=== PATIENT | male | born 1985 | race Caucasian/White ===

== ENCOUNTER 2017-04-25 15:52 | Emergency (ER) | payer MEDICAID, OTHER ==
[~2017-04-25] VITALS: Ht 172.7 cm; Wt 55.0 kg
[~2017-04-25 15:52] MED LIST: ALBU2.5V NEB; CARV6.2512 PO; DORN1SOL NEB; FAMO-79 PO; LIPA1CAP45 PO; METO5TAB57 PO; NICO-485 TD; NICO-486 TD; OMEP-110 PO; OXYC5TAB3 PO; PRED20TA PO; TOBR300A5 IVPB; TRAM50TA2 PO; [UNRECOGNIZED DRUG - CODE] IVPB; [UNRECOGNIZED DRUG - CODE] PO
[2017-04-25] MEDS ORDERED: SODIUM CHLORIDE 0.9% 1,000 ML IV ONE (16:10)
[2017-04-25] MEDS ORDERED: AMIT50TA PO (16:21)
[2017-04-25] MEDS ORDERED: GABA600T2 PO (16:21)
[2017-04-25] MEDS ORDERED: MEGE40TA PO (16:21)
[2017-04-25] MEDS ORDERED: ALBUTEROL/IPRATROPIUM 2.5MG/0.5MG, 3 ML NPPB SCH (16:30)
[2017-04-25] MEDS ORDERED: SODIUM CHLORIDE FLUSH 10ML SYR IVF ONE (16:30)
[2017-04-25 16:41] LABS: HEMATOCRIT 45.4 % (39.2-51.8); HEMOGLOBIN 14.6 g/dL (13.7-18.0); WHITE BLOOD COUNT 10.7 x10^3/uL (3.4-10)
[2017-04-25] MEDS ORDERED: ALBUTEROL/IPRATROPIUM 2.5MG/0.5MG, 3 ML ONE (16:43)
[2017-04-25 16:54] LABS: ASPARTATE AMINO TRANSFERASE 17 U/L (15-37); BLOOD UREA NITROGEN 11 mg/dL (7-18)
[2017-04-25 18:44] VITALS: BP 120/66
== END 2017-04-25 18:53 | disposition home or self-care (01) ==
LOC: ED 17:28
DX: J20.9 Acute bronchitis, unspecified (principal)
CPT/HCPCS: 36415; 71010; 80053; 83605; 85025; 87040; 93005; 94640; 96360; 96361; 99285; J7030; J7620

== ENCOUNTER 2017-08-20 20:40 | Emergency (ER) | payer OTHER, MEDICAID ==
[~2017-08-20] VITALS: Ht 167.6 cm; Wt 55.7 kg
[~2017-08-20 20:40] MED LIST changes: +AMIT50TA PO; +GABA600T2 PO; +MEGE40TA PO
[2017-08-20] MEDS ORDERED: SODIUM CHLORIDE FLUSH 10ML SYR IVF ONE (21:00)
[2017-08-20] MEDS ORDERED: SODIUM CHLORIDE 0.9% 1,000ML IVBOLUS ONE (21:00)
[2017-08-20 21:11] LABS: BASOPHILS # (AUTO) 0.05 x10^3/uL (0-0.1); BASOPHILS % (AUTO) 0 % (0-1); EOSINOPHILS # (AUTO) 0.08 x10^3/uL (0-0.4); EOSINOPHILS % (AUTO) 1 % (1-7); LYMPHOCYTES # (AUTO) 1.71 x10^3/uL (1-3.4); LYMPHOCYTES % (AUTO) 15 % (22-44); MD NO; MEAN CORPUSCULAR HEMOGLOBIN 28.5 pg (27.5-34.5); MEAN CORPUSCULAR HGB CONC 32.5 g/dL (33.2-36.2); MEAN CORPUSCULAR VOLUME 87.8 fL (81-97); MEAN PLATELET VOLUME 8.6 fL (7.4-10.4); MONOCYTES # (AUTO) 0.95 x10^3/uL (0.2-0.8); MONOCYTES % (AUTO) 9 % (2-9); NEUTROPHILS # (AUTO) 8.42 x10^3/uL (1.8-6.8); NEUTROPHILS % (AUTO) 75 % (42-75); PLATELET COUNT 351 x10^3/uL (130-400); RED CELL DISTRIBUTION WIDTH 16.1 % (9.4-14.8)
[2017-08-20 21:24] LABS: ALANINE AMINOTRANSFERASE 37 U/L (12-78); ALBUMIN 3.7 g/dL (3.4-5.0); ANION GAP 10 mmol/L (5-15); CALCIUM 8.9 mg/dL (8.5-10.1); CHLORIDE 101 mmol/L (98-107); CREATININE 0.73 mg/dL (0.7-1.3)
[2017-08-20 21:26] LABS: ALKALINE PHOSPHATASE 114 U/L (45-117); BILIRUBIN,TOTAL 0.5 mg/dL (0.2-1.0); TOTAL PROTEIN 9.3 g/dL (6.4-8.2)
[2017-08-20 23:09] LABS: MICROSCOPIC NOT IND
[2017-08-20 23:17] LABS: CULTURE INDICATED? NO
[2017-08-20 23:46] VITALS: BP 119/78
== END 2017-08-21 00:36 | disposition home or self-care (01) ==
LOC: ED 22:22
DX: K59.00 Constipation, unspecified (principal); F17.210 Nicotine dependence, cigarettes, uncomplicated
CPT/HCPCS: 36415; 74021; 80053; 81003; 85025; 96360; 99285; 99406; J7030